=== PATIENT | male | born 1970 | race African-American/Black ===

== ENCOUNTER 2022-12-22 01:36 | Inpatient (IN) | payer OTHER ==
[2022-12-22 02:20] VITALS: BMI 17.8
[2022-12-22] MEDS ORDERED: NALOXONE HCL (KLOXXADO) 8 MG SPRAY NS PRN (03:42)
[2022-12-22] MEDS ORDERED: IBUPROFEN 400 MG TABLET (FP) PO PRN (03:42)
[2022-12-22] MEDS ORDERED: BENZOCAINE/MENTHOL (CHLORASEPTIC ) LOZENGE MM PRN (03:42)
[2022-12-22] MEDS ORDERED: POLYETHYLENE GLYCOL (HEALTHYLAX) 3350 17 GM PACKET PO PRN (03:42)
[2022-12-22] MEDS ORDERED: DICYCLOMINE HCL 10 MG CAPSULE PO PRN (03:42)
[2022-12-22] MEDS ORDERED: MAGNESIUM HYDROX 2400MG/30ML ORAL SUSPENSION 30 ML CUP PO PRN (03:42)
[2022-12-22] MEDS ORDERED: hydrOXYzine PAMOATE 25 MG CAPSULE (FP) PO PRN (03:42)
[2022-12-22] MEDS ORDERED: BISMUTH SUBSALICYLATE 524 MG/30 ML PO PRN (03:42)
[2022-12-22] MEDS ORDERED: ACETAMINOPHEN 325 MG TABLET (FP) PO PRN (03:42)
[2022-12-22] MEDS ORDERED: METHOCARBAMOL 500 MG TABLET PO PRN (03:42)
[2022-12-22] MEDS ORDERED: guaiFENesin 600 MG TABLET.ER (FP) PO PRN (03:42)
[2022-12-22] MEDS ORDERED: ONDANSETRON *ODT* 4 MG TABLET SL PRN (03:42)
[2022-12-22] MEDS ORDERED: MAG HYDROX/AL HYDROX/SIMETH 30 ML UNIT-DOSE CUP PO PRN (03:42)
[2022-12-22] MEDS ORDERED: NICOTINE POLACRILEX 2 MG GUM BUC PRN (03:42)
[2022-12-22] MEDS ORDERED: BENZONATATE 200 MG CAPSULE PO PRN (03:42)
[2022-12-22] MEDS ORDERED: LOPERAMIDE HCL 2 MG CAPSULE PO PRN (03:42)
[2022-12-22] MEDS ORDERED: NALOXONE HCL 0.4 MG/ML VIAL IM PRN (03:42)
[2022-12-22] MEDS: IBUPROFEN 600 MG TABLET (FP) PO PRN ×2 (04:05→17:36)
[2022-12-22] MEDS: PRENATAL VITAMINS W/ FOLIC ACID TABLET (FP) PO SCH (10:11)
[2022-12-22] MEDS: NICOTINE 14 MG/24 HOURS TOPICAL PATCH TD SCH (10:11)
[2022-12-22] MEDS ORDERED: MELATONIN 5 MG TABLETS PO SCH (22:00)
[2022-12-22] MEDS ORDERED: QUEtiapine FUMARATE 100 MG TABLET (FP) PO SCH (22:00)
[2022-12-22] MEDS ORDERED: THIAMINE HCL 100 MG TABLET (FP) PO SCH (22:00)
[2022-12-23] MEDS ORDERED: ALBUTEROL SO4 HFA INHALER IH PRN (08:15)
[2022-12-23 09:44] VITALS: RESP 18; TEMP 98.4
[2022-12-23 09:46] VITALS: BP 164/106; PULSE 86
[2022-12-23] MEDS: NICOTINE 14 MG/24 HOURS TOPICAL PATCH TD SCH (10:00)
[2022-12-23] MEDS: PRENATAL VITAMINS W/ FOLIC ACID TABLET (FP) PO SCH (10:00)
[2022-12-23] MEDS ORDERED: LOSARTAN POTASSIUM 50 MG TABLET PO SCH (10:15)
[2022-12-23] MEDS ORDERED: amLODIPine BESYLATE 5 MG TABLET (FP) PO SCH (10:15)
[2022-12-23] MEDS ORDERED: PNEUMOC 20-VAL CONJ-DIP CRM/PF 0.5 ML SYRINGE IM ONE (12:00)
== END 2022-12-23 10:37 | disposition home or self-care (01) | DRG 774 ==
LOC: YASAS 01:36 → Y6N 03:43
PROVIDERS: ADMIT Allergy & Immunology; ATTEND Surgery
PROC: HZ2ZZZZ Detoxification Services for Substance Abuse Treatment (ICD-10-PCS; principal; 2022-12-22)
DX: F10.20 Alcohol dependence, uncomplicated (principal); F14.20 Cocaine dependence, uncomplicated; F16.20 Hallucinogen dependence, uncomplicated; F12.20 Cannabis dependence, uncomplicated; F17.210 Nicotine dependence, cigarettes, uncomplicated; F19.282 Other psychoactive substance dependence with psychoactive substance-induced sleep disorder; I10 Essential (primary) hypertension; J45.20 Mild intermittent asthma, uncomplicated
CPT/HCPCS: 36415; 80053; 85027; 86780; 87635; 87811; 93005; 93010

== ENCOUNTER 2023-04-11 15:19 | Inpatient (IN) | payer OTHER ==
[2023-04-11 16:32] VITALS: BMI 18.7
[2023-04-11] MEDS ORDERED: BISMUTH SUBSALICYLATE 524 MG/30 ML PO PRN (18:30)
[2023-04-11] MEDS ORDERED: BENZONATATE 200 MG CAPSULE PO PRN (18:30)
[2023-04-11] MEDS ORDERED: MAGNESIUM HYDROX 2400MG/30ML ORAL SUSPENSION 30 ML CUP PO PRN (18:30)
[2023-04-11] MEDS ORDERED: LOPERAMIDE HCL 2 MG CAPSULE PO PRN (18:30)
[2023-04-11] MEDS ORDERED: ONDANSETRON *ODT* 4 MG TABLET SL PRN (18:30)
[2023-04-11] MEDS ORDERED: ACETAMINOPHEN 325 MG TABLET (FP) PO PRN (18:30)
[2023-04-11] MEDS ORDERED: METHOCARBAMOL 500 MG TABLET PO PRN (18:30)
[2023-04-11] MEDS ORDERED: DICYCLOMINE HCL 10 MG CAPSULE PO PRN (18:30)
[2023-04-11] MEDS ORDERED: IBUPROFEN 400 MG TABLET (FP) PO PRN (18:30)
[2023-04-11] MEDS ORDERED: BENZOCAINE/MENTHOL (CHLORASEPTIC ) LOZENGE MM PRN (18:30)
[2023-04-11] MEDS ORDERED: NICOTINE POLACRILEX 2 MG LOZENGE BC PRN (18:30)
[2023-04-11] MEDS ORDERED: MAG HYDROX/AL HYDROX/SIMETH 30 ML UNIT-DOSE CUP PO PRN (18:30)
[2023-04-11] MEDS ORDERED: guaiFENesin 600 MG TABLET.ER (FP) PO PRN (18:30)
[2023-04-11] MEDS ORDERED: hydrOXYzine PAMOATE 25 MG CAPSULE (FP) PO PRN (18:30)
[2023-04-11] MEDS ORDERED: POLYETHYLENE GLYCOL (HEALTHYLAX) 3350 17 GM PACKET PO PRN (18:30)
[2023-04-11] MEDS ORDERED: P-EPHED 60MG/TRIPROLIDI 2.5MG TABLET PO PRN (18:30)
[2023-04-11] MEDS ORDERED: IBUPROFEN 600 MG TABLET (FP) PO PRN (18:30)
[2023-04-11] MEDS: THIAMINE HCL 100 MG TABLET (FP) PO SCH (21:11)
[2023-04-11] MEDS ORDERED: MELATONIN 5 MG TABLETS PO SCH (22:00)
[2023-04-11] MEDS ORDERED: ALBUTEROL SO4 HFA INHALER IH PRN (22:22)
[2023-04-12] MEDS: PRENATAL VITAMINS W/ FOLIC ACID TABLET (FP) PO SCH (10:02)
[2023-04-12] MEDS ORDERED: chlordiazePOXIDE HCL 25 MG CAPSULE PO PRN (10:35)
[2023-04-12] MEDS: chlordiazePOXIDE HCL 25 MG CAPSULE PO SCH ×3 (10:50→22:42)
[2023-04-12] MEDS: NICOTINE 21 MG/24 HOURS TOPICAL PATCH TD SCH (10:51)
[2023-04-12 14:27] LABS: HEMATOCRIT 33.2 % (35.4-49); HEMOGLOBIN 10.6 GM/dL (11.7-16.9); MCH 28.5 pg (25.7-33.7); MCHC 31.8 g/dl (32.0-35.9); MEAN CELL VOLUME 89.6 fl (80-96); PLATELET COUNT 225 10^3/uL (134-434); RBC 3.71 M/mm3 (4.00-5.60); RDW 17.4 % (11.9-15.9); WHITE BLOOD COUNT 4.2 K/mm3 (4.0-10.0)
[2023-04-12 14:39] LABS: CHLORIDE 105 mmol/L (98-107); POTASSIUM 4.5 mmol/L (3.5-5.1); SODIUM 138 mmol/L (136-145)
[2023-04-12 14:41] LABS: ALBUMIN 2.9 g/dl (3.4-5.0); ANION GAP 8 mmol/L (4-13); BLOOD UREA NITROGEN 26.7 mg/dL (7-18); CALCIUM 8.7 mg/dL (8.5-10.1); CO2 25 mmol/L (21-32); GLUCOSE,RANDOM 102 mg/dL (74-106)
[2023-04-12 14:44] LABS: CREATININE 1.5 mg/dL (0.55-1.3); SGOT/AST 24 U/L (15-37); SGPT/ALT 29 U/L (13-61)
[2023-04-12 14:46] LABS: BILIRUBIN,TOTAL 0.3 mg/dL (0.2-1); TOT PROT 6.5 g/dl (6.4-8.2)
[2023-04-12 14:47] LABS: ALK PHOS 122 U/L (45-117)
[2023-04-12] MEDS ORDERED: PATIENT'S OWN MEDICATION (NON-FORMULARY) (Losartan Potassium [Cozaar] 100 MG Tablet) PO SCH (19:00)
[2023-04-12] MEDS: ASPIRIN 81 MG CHEWABLE TABLETS PO SCH (19:39)
[2023-04-12] MEDS ORDERED: QUEtiapine FUMARATE 100 MG TABLET (FP) PO SCH (22:00)
[2023-04-12] MEDS: THIAMINE HCL 100 MG TABLET (FP) PO SCH (22:42)
[2023-04-13] MEDS: chlordiazePOXIDE HCL 25 MG CAPSULE PO SCH ×2 (05:26→10:29)
[2023-04-13 06:52] VITALS: RESP 18
[2023-04-13 09:37] VITALS: TEMP 98.4
[2023-04-13] MEDS ORDERED: LOSARTAN POTASSIUM 50 MG TABLET PO SCH (10:00)
[2023-04-13] MEDS: PRENATAL VITAMINS W/ FOLIC ACID TABLET (FP) PO SCH (10:28)
[2023-04-13] MEDS: ASPIRIN 81 MG CHEWABLE TABLETS PO SCH (10:28)
[2023-04-13] MEDS: NICOTINE 21 MG/24 HOURS TOPICAL PATCH TD SCH (10:31)
[2023-04-13 13:02] VITALS: BP 146/82; PULSE 60
[2023-04-14] MEDS ORDERED: chlordiazePOXIDE HCL 25 MG CAPSULE PO SCH (05:00)
[2023-04-15] MEDS ORDERED: chlordiazePOXIDE HCL 10 MG CAPSULE PO PRN
[2023-04-15] MEDS ORDERED: chlordiazePOXIDE HCL 10 MG CAPSULE PO SCH (05:00)
[2023-04-16] MEDS ORDERED: chlordiazePOXIDE HCL 10 MG CAPSULE PO SCH (05:00)
[2023-04-17] MEDS ORDERED: chlordiazePOXIDE HCL 10 MG CAPSULE PO ONE (05:00)
== END 2023-04-13 15:22 | disposition left against medical advice (07) | DRG 770 ==
LOC: YASAS 15:19 → Y6N 20:13
PROVIDERS: ADMIT Allergy & Immunology; ATTEND Surgery
PROC: HZ2ZZZZ Detoxification Services for Substance Abuse Treatment (ICD-10-PCS; principal; 2023-04-11)
DX: F10.230 Alcohol dependence with withdrawal, uncomplicated (principal); F14.20 Cocaine dependence, uncomplicated; F16.20 Hallucinogen dependence, uncomplicated; F17.210 Nicotine dependence, cigarettes, uncomplicated; F39 Unspecified mood [affective] disorder; F19.282 Other psychoactive substance dependence with psychoactive substance-induced sleep disorder; F19.24 Other psychoactive substance dependence with psychoactive substance-induced mood disorder; I10 Essential (primary) hypertension; J45.20 Mild intermittent asthma, uncomplicated; Z95.0 Presence of cardiac pacemaker
CPT/HCPCS: 36415; 80053; 80307; 85027; 86780; 87635; 93005; 93010

== ENCOUNTER 2023-07-02 17:38 | Inpatient (IN) | payer OTHER ==
[2023-07-02 18:16] VITALS: BMI 19.8
[2023-07-02] MEDS ORDERED: BISMUTH SUBSALICYLATE 524 MG/30 ML PO PRN (20:11)
[2023-07-02] MEDS ORDERED: NICOTINE POLACRILEX 2 MG GUM BUC PRN (20:11)
[2023-07-02] MEDS ORDERED: NICOTINE POLACRILEX 2 MG LOZENGE BC PRN (20:11)
[2023-07-02] MEDS ORDERED: MAGNESIUM HYDROX 2400MG/30ML ORAL SUSPENSION 30 ML CUP PO PRN (20:11)
[2023-07-02] MEDS ORDERED: BENZONATATE 200 MG CAPSULE PO PRN (20:11)
[2023-07-02] MEDS ORDERED: IBUPROFEN 400 MG TABLET (FP) PO PRN (20:11)
[2023-07-02] MEDS ORDERED: guaiFENesin 600 MG TABLET.ER (FP) PO PRN (20:11)
[2023-07-02] MEDS ORDERED: ACETAMINOPHEN 325 MG TABLET (FP) PO PRN (20:11)
[2023-07-02] MEDS ORDERED: DICYCLOMINE HCL 10 MG CAPSULE PO PRN (20:11)
[2023-07-02] MEDS ORDERED: MAG HYDROX/AL HYDROX/SIMETH 30 ML UNIT-DOSE CUP PO PRN (20:11)
[2023-07-02] MEDS ORDERED: LOPERAMIDE HCL 2 MG CAPSULE PO PRN (20:11)
[2023-07-02] MEDS ORDERED: ONDANSETRON *ODT* 4 MG TABLET SL PRN (20:11)
[2023-07-02] MEDS ORDERED: POLYETHYLENE GLYCOL (HEALTHYLAX) 3350 17 GM PACKET PO PRN (20:11)
[2023-07-02] MEDS ORDERED: ASPIRIN COATED 81 MG TABLET.EC PO SCH (20:53)
[2023-07-02] MEDS: ASPIRIN 325 MG TABLET PO SCH (20:58)
[2023-07-02] MEDS: THIAMINE HCL 100 MG TABLET (FP) PO SCH (22:19)
[2023-07-02] MEDS: MELATONIN 5 MG TABLETS PO SCH (22:19)
[2023-07-02] MEDS: ASPIRIN COATED 81 MG TABLET.EC PO SCH (22:19)
[2023-07-03] MEDS: cloNIDine HCL 0.1 MG TABLET PO ONE (00:06)
[2023-07-03] MEDS: hydrOXYzine PAMOATE 25 MG CAPSULE (FP) PO PRN (05:21)
[2023-07-03] MEDS: METHOCARBAMOL 500 MG TABLET PO PRN (05:21)
[2023-07-03] MEDS ORDERED: chlordiazePOXIDE HCL 25 MG CAPSULE PO PRN (09:53)
[2023-07-03] MEDS: LOSARTAN POTASSIUM 50 MG TABLET PO SCH (10:11)
[2023-07-03] MEDS: chlordiazePOXIDE HCL 25 MG CAPSULE PO SCH (10:11)
[2023-07-03] MEDS: PRENATAL VITAMINS W/ FOLIC ACID TABLET (FP) PO SCH (10:11)
[2023-07-03] MEDS: NICOTINE 7 MG/24 HOURS TOPICAL PATCH TD SCH (10:12)
[2023-07-03 12:07] LABS: POTASSIUM 4.6 mmol/L (3.5-5.1)
[2023-07-03 12:12] LABS: ALBUMIN 2.9 g/dl (3.4-5.0); BLOOD UREA NITROGEN 17.2 mg/dL (7-18); CALCIUM 8.8 mg/dL (8.5-10.1)
[2023-07-03 12:16] LABS: CREATININE 1.1 mg/dL (0.55-1.3)
[2023-07-03 12:17] LABS: BILIRUBIN,TOTAL 0.3 mg/dL (0.2-1); TOT PROT 6.3 g/dl (6.4-8.2)
[2023-07-03 12:22] LABS: HEMATOCRIT 34.1 % (35.4-49); HEMOGLOBIN 11.4 GM/dL (11.7-16.9); MCH 30.3 pg (25.7-33.7); MCHC 33.4 g/dl (32.0-35.9); MEAN CELL VOLUME 90.8 fl (80-96); MEAN PLT VOLUME 7.3 fl (7.5-11.1); PLATELET COUNT 256 10^3/uL (134-434); RBC 3.76 M/mm3 (4.00-5.60); RDW 14.5 % (11.9-15.9)
[2023-07-04] MEDS: cloNIDine HCL 0.1 MG TABLET PO SCH (10:24)
[2023-07-04] MEDS: CARVEDILOL 25 MG TABLET (FP) PO SCH (10:47)
[2023-07-05] MEDS: chlordiazePOXIDE HCL 25 MG CAPSULE PO SCH (06:00)
[2023-07-05] MEDS: BUPRENORPHINE/NALOXONE 8 MG/2 MG FILM PACKET SL SCH (10:26)
[2023-07-05] MEDS: FUROSEMIDE 20 MG TABLET (FP) PO SCH (10:26)
[2023-07-05] MEDS: ATORVASTATIN CA 40 MG TABLET (FP) PO SCH (22:26)
[2023-07-06] MEDS: chlordiazePOXIDE HCL 10 MG CAPSULE PO SCH (05:52)
[2023-07-06] MEDS: IBUPROFEN 600 MG TABLET (FP) PO PRN (21:11)
[2023-07-06] MEDS: chlordiazePOXIDE HCL 10 MG CAPSULE PO PRN (21:13)
[2023-07-07] MEDS: ALBUTEROL SO4 HFA INHALER IH PRN (02:48)
[2023-07-07] MEDS: BENZOCAINE/MENTHOL (CHLORASEPTIC ) LOZENGE MM PRN (02:50)
[2023-07-07] MEDS: P-EPHED 60MG/TRIPROLIDI 2.5MG TABLET PO ONE (03:28)
[2023-07-07] MEDS: chlordiazePOXIDE HCL 10 MG CAPSULE PO SCH (05:04)
[2023-07-07] MEDS ORDERED: ASPIRIN 81 MG CHEWABLE TABLETS PO SCH (10:00)
[2023-07-08] MEDS: chlordiazePOXIDE HCL 10 MG CAPSULE PO ONE (05:34)
[2023-07-08 09:23] VITALS: BP 150/81; PULSE 86; RESP 18; TEMP 97.3
[2023-07-08] MEDS: EMPAGLIFLOZIN (JARDIANCE) 10 MG TABLET PO SCH (09:51)
== END 2023-07-08 09:20 | disposition home or self-care (01) | DRG 774 ==
LOC: YASAS 17:38 → Y6N 20:26
PROVIDERS: ADMIT Allergy & Immunology; ATTEND Psychiatry & Neurology Pain Medicine
PROC: HZ2ZZZZ Detoxification Services for Substance Abuse Treatment (ICD-10-PCS; principal; 2023-07-02)
DX: F10.230 Alcohol dependence with withdrawal, uncomplicated (principal); F14.20 Cocaine dependence, uncomplicated; F16.20 Hallucinogen dependence, uncomplicated; F17.210 Nicotine dependence, cigarettes, uncomplicated; F19.282 Other psychoactive substance dependence with psychoactive substance-induced sleep disorder; F19.24 Other psychoactive substance dependence with psychoactive substance-induced mood disorder; F25.9 Schizoaffective disorder, unspecified; I10 Essential (primary) hypertension; J45.20 Mild intermittent asthma, uncomplicated; Z95.0 Presence of cardiac pacemaker
CPT/HCPCS: 36415; 80053; 80305; 82962; 85027; 86780

== ENCOUNTER 2023-07-17 00:04 | Emergency (ER) | payer OTHER ==
[2023-07-17 00:34] VITALS: BMI 20.8
[2023-07-17 02:13] LABS: BASO % 0.8 % (0-2.0); EOS % 3.4 % (0-4.5); HEMATOCRIT 36.5 % (35.4-49); HEMOGLOBIN 12.2 GM/dL (11.7-16.9); MCH 29.8 pg (25.7-33.7); MCHC 33.5 g/dl (32.0-35.9); MEAN PLT VOLUME 6.7 fl (7.5-11.1); MONO % 14.5 % (3.8-10.2); NEUT % 34.3 % (42.8-82.8); PLATELET COUNT 280 10^3/uL (134-434); RDW 14.1 % (11.9-15.9); VENOUS BASE EXCESS 0.9 mmol/L (-2-2); VENOUS O2 SATURATION 79.2 % (70-80); VENOUS PCO2 43.4 mmHg (38-52); VENOUS PH 7.396 (7.310-7.410); WHITE BLOOD COUNT 4.9 K/mm3 (4.0-10.0)
[2023-07-17 02:40] LABS: POTASSIUM 3.5 mmol/L (3.5-5.1)
[2023-07-17 02:42] LABS: CALCIUM 8.5 mg/dL (8.5-10.1)
[2023-07-17 02:43] LABS: ALBUMIN 2.8 g/dl (3.4-5.0); BLOOD UREA NITROGEN 11.6 mg/dL (7-18)
[2023-07-17 02:47] LABS: TOT PROT 6.5 g/dl (6.4-8.2)
[2023-07-17 02:48] LABS: BILIRUBIN,TOTAL 0.3 mg/dL (0.2-1)
[2023-07-17 02:51] LABS: N-TERMINAL BNP 1817.3 pg/ml (5-125)
[2023-07-17 09:39] VITALS: BP 144/81; PULSE 66; RESP 19; TEMP 98.2
== END 2023-07-17 09:54 | disposition home or self-care (01) ==
LOC: JER 00:04
DX: F19.10 Other psychoactive substance abuse, uncomplicated (principal)
CPT/HCPCS: 36415; 70450-TC; 71045-TC-FY; 80053; 80307; 82803; 82962; 83880; 84484; 85025; 99285-25

== ENCOUNTER 2023-07-27 19:24 | Inpatient (IN) | payer OTHER ==
[2023-07-27] MEDS ORDERED: ALBUTEROL SO4 HFA INHALER IH PRN (23:07)
[2023-07-27] MEDS ORDERED: NALOXONE HCL 0.4 MG/ML VIAL IM PRN (23:08)
[2023-07-27] MEDS ORDERED: guaiFENesin 600 MG TABLET.ER (FP) PO PRN (23:08)
[2023-07-27] MEDS ORDERED: POLYETHYLENE GLYCOL (HEALTHYLAX) 3350 17 GM PACKET PO PRN (23:08)
[2023-07-27] MEDS ORDERED: hydrOXYzine PAMOATE 25 MG CAPSULE (FP) PO PRN (23:08)
[2023-07-27] MEDS ORDERED: BENZOCAINE/MENTHOL (CHLORASEPTIC ) LOZENGE MM PRN (23:08)
[2023-07-27] MEDS ORDERED: DICYCLOMINE HCL 10 MG CAPSULE PO PRN (23:08)
[2023-07-27] MEDS ORDERED: ACETAMINOPHEN 325 MG TABLET (FP) PO PRN (23:08)
[2023-07-27] MEDS ORDERED: NALOXONE HCL (KLOXXADO) 8 MG SPRAY NS PRN (23:08)
[2023-07-27] MEDS ORDERED: MAG HYDROX/AL HYDROX/SIMETH 30 ML UNIT-DOSE CUP PO PRN (23:08)
[2023-07-27] MEDS ORDERED: ONDANSETRON *ODT* 4 MG TABLET SL PRN (23:08)
[2023-07-27] MEDS ORDERED: BENZONATATE 200 MG CAPSULE PO PRN (23:08)
[2023-07-27] MEDS ORDERED: LOPERAMIDE HCL 2 MG CAPSULE PO PRN (23:08)
[2023-07-27] MEDS ORDERED: BISMUTH SUBSALICYLATE 524 MG/30 ML PO PRN (23:08)
[2023-07-27] MEDS ORDERED: IBUPROFEN 400 MG TABLET (FP) PO PRN (23:08)
[2023-07-27] MEDS ORDERED: NICOTINE POLACRILEX 4 MG GUM BUC PRN (23:08)
[2023-07-27] MEDS ORDERED: MAGNESIUM HYDROX 2400MG/30ML ORAL SUSPENSION 30 ML CUP PO PRN (23:08)
[2023-07-28] MEDS: ASPIRIN 81 MG CHEWABLE TABLETS PO SCH (10:28)
[2023-07-28] MEDS: PRENATAL VITAMINS W/ FOLIC ACID TABLET (FP) PO SCH (10:28)
[2023-07-28] MEDS: NICOTINE 21 MG/24 HOURS TOPICAL PATCH TD SCH (10:29)
[2023-07-28 11:06] LABS: CHLORIDE 110 mmol/L (98-107); POTASSIUM 4.4 mmol/L (3.5-5.1); SODIUM 140 mmol/L (136-145)
[2023-07-28] MEDS ORDERED: ALBUTEROL SO4 HFA INHALER IH PRN (11:06)
[2023-07-28 11:08] LABS: HEMATOCRIT 34.7 % (35.4-49); HEMOGLOBIN 11.6 GM/dL (11.7-16.9); MCHC 33.4 g/dl (32.0-35.9); MEAN CELL VOLUME 89.8 fl (80-96); MEAN PLT VOLUME 6.9 fl (7.5-11.1); PLATELET COUNT 349 10^3/uL (134-434); RBC 3.86 M/mm3 (4.00-5.60); WHITE BLOOD COUNT 4.7 K/mm3 (4.0-10.0)
[2023-07-28 11:13] LABS: ALBUMIN 2.8 g/dl (3.4-5.0); ANION GAP -1 mmol/L (4-13); BLOOD UREA NITROGEN 12.7 mg/dL (7-18); CALCIUM 8.9 mg/dL (8.5-10.1); CO2 31 mmol/L (21-32); GLUCOSE,RANDOM 112 mg/dL (74-106)
[2023-07-28 11:16] LABS: SGOT/AST 10 U/L (15-37); SGPT/ALT 14 U/L (13-61)
[2023-07-28 11:18] LABS: BILIRUBIN,TOTAL 0.6 mg/dL (0.2-1); TOT PROT 6.3 g/dl (6.4-8.2)
[2023-07-28 11:19] LABS: ALK PHOS 65 U/L (45-117)
[2023-07-28] MEDS: LOSARTAN POTASSIUM 50 MG TABLET PO SCH (11:22)
[2023-07-28] MEDS: ATORVASTATIN CA 40 MG TABLET (FP) PO SCH (22:04)
[2023-07-28] MEDS: CARVEDILOL 6.25 MG TABLET (FP) PO SCH (22:04)
[2023-07-28] MEDS: MELATONIN 5 MG TABLETS PO SCH (22:05)
[2023-07-28] MEDS: THIAMINE 100 MG TABLET PO SCH (22:05)
[2023-07-29] MEDS: PATIENT'S OWN MEDICATION (NON-FORMULARY) (Dapagliflozin Propanediol 10 MG Tablet) PO SCH (10:39)
[2023-07-29] MEDS: EMPAGLIFLOZIN (JARDIANCE) 25 MG TABLET PO SCH (14:20)
[2023-07-29] MEDS: IBUPROFEN 600 MG TABLET (FP) PO PRN (17:27)
[2023-07-30 09:13] VITALS: BP 126/72; PULSE 67; RESP 16; TEMP 98
== END 2023-07-30 10:28 | disposition home or self-care (01) | DRG 774 ==
LOC: YASAS 19:24 → Y6N 23:15
PROVIDERS: ADMIT Allergy & Immunology; ATTEND Surgery
PROC: HZ2ZZZZ Detoxification Services for Substance Abuse Treatment (ICD-10-PCS; principal; 2023-07-27)
DX: F10.20 Alcohol dependence, uncomplicated (principal); F14.20 Cocaine dependence, uncomplicated; F17.210 Nicotine dependence, cigarettes, uncomplicated; E78.5 Hyperlipidemia, unspecified; I10 Essential (primary) hypertension; E11.9 Type 2 diabetes mellitus without complications; Z79.84 Long term (current) use of oral hypoglycemic drugs; R60.0 Localized edema
CPT/HCPCS: 36415; 80053; 80305; 80307; 85027; 86780; 93005; 93010

== ENCOUNTER 2023-08-01 09:46 | Inpatient (IN) | payer OTHER ==
[2023-08-01 10:10] VITALS: BMI 19.6
[2023-08-01] MEDS ORDERED: MAG HYDROX/AL HYDROX/SIMETH 30 ML UNIT-DOSE CUP PO PRN (10:51)
[2023-08-01] MEDS ORDERED: ONDANSETRON *ODT* 4 MG TABLET SL PRN (10:51)
[2023-08-01] MEDS ORDERED: BISMUTH SUBSALICYLATE 262 MG/15 ML BTL PO PRN (10:51)
[2023-08-01] MEDS ORDERED: IBUPROFEN 400 MG TABLET (FP) PO PRN (10:51)
[2023-08-01] MEDS ORDERED: NALOXONE HCL 0.4 MG/ML VIAL IM PRN (10:51)
[2023-08-01] MEDS ORDERED: MAGNESIUM HYDROX 2400MG/30ML ORAL SUSPENSION 30 ML CUP PO PRN (10:51)
[2023-08-01] MEDS ORDERED: NICOTINE POLACRILEX 4 MG GUM BUC PRN (10:51)
[2023-08-01] MEDS ORDERED: guaiFENesin 600 MG TABLET.ER (FP) PO PRN (10:51)
[2023-08-01] MEDS ORDERED: IBUPROFEN 600 MG TABLET (FP) PO PRN (10:51)
[2023-08-01] MEDS ORDERED: BENZONATATE 200 MG CAPSULE PO PRN (10:51)
[2023-08-01] MEDS ORDERED: NICOTINE POLACRILEX 4 MG LOZENGE BC PRN (10:51)
[2023-08-01] MEDS ORDERED: BENZOCAINE/MENTHOL (CHLORASEPTIC ) LOZENGE MM PRN (10:51)
[2023-08-01] MEDS ORDERED: hydrOXYzine PAMOATE 25 MG CAPSULE (FP) PO PRN (10:51)
[2023-08-01] MEDS ORDERED: DICYCLOMINE HCL 10 MG CAPSULE PO PRN (10:51)
[2023-08-01] MEDS ORDERED: NALOXONE HCL (KLOXXADO) 8 MG SPRAY NS PRN (10:51)
[2023-08-01] MEDS ORDERED: POLYETHYLENE GLYCOL (HEALTHYLAX) 3350 17 GM PACKET PO PRN (10:51)
[2023-08-01] MEDS ORDERED: LOPERAMIDE HCL 2 MG CAPSULE PO PRN (10:51)
[2023-08-01] MEDS ORDERED: ALBUTEROL SO4 HFA INHALER IH PRN (10:55)
[2023-08-01] MEDS: INSULIN ASPART SLIDING SCALE (NOVOLOG) 1 VIAL SQ SCH (11:25)
[2023-08-01] MEDS: EMPAGLIFLOZIN (JARDIANCE) 25 MG TABLET PO SCH (12:40)
[2023-08-01] MEDS: LOSARTAN POTASSIUM 50 MG TABLET PO SCH (12:40)
[2023-08-01] MEDS: chlordiazePOXIDE HCL 25 MG CAPSULE PO SCH (17:38)
[2023-08-01] MEDS: MELATONIN 5 MG TABLETS PO SCH (22:15)
[2023-08-01] MEDS: THIAMINE 100 MG TABLET PO SCH (22:15)
[2023-08-01] MEDS: CARVEDILOL 6.25 MG TABLET (FP) PO SCH (22:15)
[2023-08-01] MEDS: QUEtiapine FUMARATE 300 MG TABLET PO SCH (22:15)
[2023-08-01] MEDS: ATORVASTATIN CA 40 MG TABLET (FP) PO SCH (22:16)
[2023-08-02] MEDS: PRENATAL VITAMINS W/ FOLIC ACID TABLET (FP) PO SCH (10:32)
[2023-08-02] MEDS: ASPIRIN 81 MG CHEWABLE TABLETS PO SCH (10:33)
[2023-08-02] MEDS: FUROSEMIDE 20 MG TABLET (FP) PO SCH (10:34)
[2023-08-02] MEDS: PNEUMOC 20-VAL CONJ-DIP CRM/PF 0.5 ML SYRINGE IM ONE (11:10)
[2023-08-02 11:55] LABS: HEMATOCRIT 36.1 % (35.4-49); HEMOGLOBIN 12.1 GM/dL (11.7-16.9); MCH 29.5 pg (25.7-33.7); MCHC 33.6 g/dl (32.0-35.9); MEAN CELL VOLUME 87.9 fl (80-96); MEAN PLT VOLUME 7.4 fl (7.5-11.1); PLATELET COUNT 257 10^3/uL (134-434); RDW 14.3 % (11.9-15.9); WHITE BLOOD COUNT 4.5 K/mm3 (4.0-10.0)
[2023-08-02 12:00] LABS: POTASSIUM 4.3 mmol/L (3.5-5.1)
[2023-08-02 12:12] LABS: ALBUMIN 3.2 g/dl (3.4-5.0); CALCIUM 8.9 mg/dL (8.5-10.1)
[2023-08-02 12:13] LABS: BLOOD UREA NITROGEN 16.2 mg/dL (7-18)
[2023-08-02 12:15] LABS: CREATININE 1.1 mg/dL (0.55-1.3)
[2023-08-02 12:17] LABS: BILIRUBIN,TOTAL 0.4 mg/dL (0.2-1)
[2023-08-02 12:18] LABS: TOT PROT 6.8 g/dl (6.4-8.2)
[2023-08-03] MEDS: chlordiazePOXIDE HCL 25 MG CAPSULE PO PRN (06:18)
[2023-08-03] MEDS: chlordiazePOXIDE HCL 25 MG CAPSULE PO SCH (06:20)
[2023-08-03] MEDS: METHOCARBAMOL 500 MG TABLET PO PRN (10:54)
[2023-08-04] MEDS ORDERED: chlordiazePOXIDE HCL 10 MG CAPSULE PO PRN
[2023-08-04] MEDS: chlordiazePOXIDE HCL 10 MG CAPSULE PO SCH (05:47)
[2023-08-05] MEDS: chlordiazePOXIDE HCL 10 MG CAPSULE PO SCH (06:33)
[2023-08-06] MEDS: chlordiazePOXIDE HCL 10 MG CAPSULE PO ONE (05:42)
[2023-08-06] MEDS: ACETAMINOPHEN 325 MG TABLET (FP) PO PRN (05:44)
[2023-08-06 12:30] VITALS: BP 132/82; PULSE 87; RESP 17; TEMP 98.1
== END 2023-08-06 14:42 | disposition home or self-care (01) | DRG 773 ==
LOC: YASAS 09:46 → Y3N 10:57
PROVIDERS: ADMIT Allergy & Immunology; ATTEND Surgery
PROC: HZ2ZZZZ Detoxification Services for Substance Abuse Treatment (ICD-10-PCS; principal; 2023-08-01)
DX: F10.230 Alcohol dependence with withdrawal, uncomplicated (principal); F11.20 Opioid dependence, uncomplicated; F14.20 Cocaine dependence, uncomplicated; F16.10 Hallucinogen abuse, uncomplicated; F12.20 Cannabis dependence, uncomplicated; F20.9 Schizophrenia, unspecified; F17.210 Nicotine dependence, cigarettes, uncomplicated; E78.5 Hyperlipidemia, unspecified; I25.10 Atherosclerotic heart disease of native coronary artery without angina pectoris; I10 Essential (primary) hypertension; R94.31 Abnormal electrocardiogram [ECG] [EKG]; E11.9 Type 2 diabetes mellitus without complications; Z79.84 Long term (current) use of oral hypoglycemic drugs; Z95.0 Presence of cardiac pacemaker
CPT/HCPCS: 36415; 80053; 80305; 80307; 82140; 82962; 83036; 85027; 86780; 87811; 93005; 93010

== ENCOUNTER 2023-09-12 11:33 | Inpatient (IN) | payer OTHER ==
[2023-09-12] MEDS ORDERED: BENZONATATE 200 MG CAPSULE PO PRN (14:18)
[2023-09-12] MEDS ORDERED: hydrOXYzine PAMOATE 25 MG CAPSULE (FP) PO PRN (14:18)
[2023-09-12] MEDS ORDERED: ACETAMINOPHEN 325 MG TABLET (FP) PO PRN (14:18)
[2023-09-12] MEDS ORDERED: guaiFENesin 600 MG TABLET.ER (FP) PO PRN (14:18)
[2023-09-12] MEDS ORDERED: IBUPROFEN 600 MG TABLET (FP) PO PRN (14:18)
[2023-09-12] MEDS ORDERED: IBUPROFEN 400 MG TABLET (FP) PO PRN (14:18)
[2023-09-12] MEDS ORDERED: MAGNESIUM HYDROX 2400MG/30ML ORAL SUSPENSION 30 ML CUP PO PRN (14:18)
[2023-09-12] MEDS ORDERED: MAG HYDROX/AL HYDROX/SIMETH 30 ML UNIT-DOSE CUP PO PRN (14:18)
[2023-09-12] MEDS ORDERED: POLYETHYLENE GLYCOL (HEALTHYLAX) 3350 17 GM PACKET PO PRN (14:18)
[2023-09-12] MEDS ORDERED: LOPERAMIDE HCL 2 MG CAPSULE PO PRN (14:18)
[2023-09-12] MEDS ORDERED: NALOXONE HCL 0.4 MG/ML VIAL IM PRN (14:18)
[2023-09-12] MEDS ORDERED: NALOXONE (NARCAN) HCL 4 MG/0.1 ML SPRAY NS PRN (14:18)
[2023-09-12] MEDS ORDERED: BENZOCAINE/MENTHOL (CHLORASEPTIC ) LOZENGE MM PRN (14:18)
[2023-09-12] MEDS ORDERED: ALBUTEROL SO4 HFA INHALER IH PRN (16:15)
[2023-09-12] MEDS: LOSARTAN POTASSIUM 25 MG TABLET PO ONE (17:57)
[2023-09-12] MEDS: THIAMINE 100 MG TABLET PO SCH (23:20)
[2023-09-12] MEDS: CARVEDILOL 6.25 MG TABLET (FP) PO SCH (23:20)
[2023-09-12] MEDS: ATORVASTATIN CA 40 MG TABLET (FP) PO SCH (23:20)
[2023-09-12] MEDS: MELATONIN 5 MG TABLETS PO SCH (23:20)
[2023-09-13] MEDS: ASPIRIN 81 MG CHEWABLE TABLETS PO SCH (10:23)
[2023-09-13] MEDS: LOSARTAN POTASSIUM 50 MG TABLET PO SCH (10:24)
[2023-09-13] MEDS: NICOTINE 21 MG/24 HOURS TOPICAL PATCH TD SCH (10:24)
[2023-09-13] MEDS: PRENATAL VITAMINS W/ FOLIC ACID TABLET (FP) PO SCH (10:24)
[2023-09-13] MEDS: NICOTINE POLACRILEX 2 MG GUM BUC PRN (10:25)
[2023-09-13] MEDS: BUPRENORPHINE/NALOXONE 8 MG/2 MG FILM PACKET SL SCH (10:27)
[2023-09-13] MEDS: TUBERCULIN PPD 5 TU/0.1ML VIAL ID ONE (12:25)
[2023-09-13] MEDS: INSULIN ASPART SLIDING SCALE (NOVOLOG) 1 VIAL SQ SCH (12:25)
[2023-09-13] MEDS: EMPAGLIFLOZIN (JARDIANCE) 25 MG TABLET PO SCH (12:42)
[2023-09-13] MEDS: FUROSEMIDE 20 MG TABLET (FP) PO SCH (12:42)
[2023-09-13] MEDS: QUEtiapine FUMARATE 50 MG TABLET PO SCH (21:41)
[2023-09-14 12:38] LABS: URINE APPEARANCE CLEAR; URINE BILIRUBIN NEGATIVE (NEGATIVE); URINE COLOR YELLOW; URINE GLUCOSE (UA) NEGATIVE (NEGATIVE); URINE KETONE NEGATIVE (NEGATIVE); URINE LEUK ESTERASE NEGATIVE (NEGATIVE); URINE NITRITE NEGATIVE (NEGATIVE); URINE PROTEIN NEGATIVE (NEGATIVE); URINE UROBILINOGEN 0.2 mg/dL (0.2-1.0)
[2023-09-14] MEDS: BUPRENORPHINE/NALOXONE 8 MG/2 MG FILM PACKET SL SCH (19:10)
[2023-09-16] MEDS ORDERED: INSULIN (NOVOLOG) ASPART 100 UNITS/ML 10ML VIAL ONE (16:38)
[2023-09-22] MEDS ORDERED: QUEtiapine FUMARATE 25 MG TABLET ONE (21:03)
[2023-09-25 07:07] VITALS: TEMP 98.2
[2023-09-25 09:04] VITALS: RESP 18
[2023-09-26 08:49] VITALS: BP 135/83; PULSE 85
== END 2023-09-26 09:58 | disposition home or self-care (01) | DRG 772 ==
LOC: YASAS 11:33 → Y3NR 15:27 → Y5N 20:10
PROVIDERS: ADMIT Allergy & Immunology; ATTEND Psychiatry & Neurology Pain Medicine
PROC: HZ42ZZZ Group Counseling for Substance Abuse Treatment, Cognitive-Behavioral (ICD-10-PCS; principal; 2023-09-12)
DX: F10.20 Alcohol dependence, uncomplicated (principal); F14.20 Cocaine dependence, uncomplicated; F16.20 Hallucinogen dependence, uncomplicated; F17.210 Nicotine dependence, cigarettes, uncomplicated; F20.9 Schizophrenia, unspecified; F19.282 Other psychoactive substance dependence with psychoactive substance-induced sleep disorder; I10 Essential (primary) hypertension; E78.5 Hyperlipidemia, unspecified; E11.9 Type 2 diabetes mellitus without complications; Z79.84 Long term (current) use of oral hypoglycemic drugs; Z95.0 Presence of cardiac pacemaker; Z59.01 Sheltered homelessness; Z56.0 Unemployment, unspecified
CPT/HCPCS: 80305; 81003; 87811; 93005; 93010